=== PATIENT | female | born 1995 | race Caucasian/White ===

== ENCOUNTER → 2024-02-18 13:26 | Outpatient (CLI) | payer OTHER, MEDICAID, SELFPAY ==
[2024-02-19 11:20] LABS: Urine N gonorrhoeae NOT DETECTED
[2024-02-19 11:32] LABS: Urine Chlamydia NOT DETECTED
== END ==
PROVIDERS: Visit Provider Obstetrics & Gynecology
DX: Z34.01 Encounter for supervision of normal first pregnancy, first trimester (principal)
CPT/HCPCS: 87086; 87491; 87591

== ENCOUNTER → 2024-03-02 09:35 | Outpatient (CLI) | payer OTHER, MEDICAID, SELFPAY | PROVIDERS: Visit Provider Physician Assistant Medical | DX: Z34.83 Encounter for supervision of other normal pregnancy, third trimester (principal); Z3A.29 29 weeks gestation of pregnancy | CPT/HCPCS: 87086 ==

== ENCOUNTER → 2024-03-02 10:03 | Outpatient (CLI) | payer OTHER, MEDICAID, SELFPAY ==
[2024-03-02 11:27] LABS: Hemoglobin A1C% w Est Avg Glu 4.8 % (4.0-6.0)
[2024-03-03 08:36] LABS: Varicella IgG Antibody <135 index (Immune >165)
== END ==
PROVIDERS: Obstetrics & Gynecology; Referring Provider Physician Assistant Medical; Visit Provider Physician Assistant Medical
DX: Z34.83 Encounter for supervision of other normal pregnancy, third trimester (principal); Z3A.29 29 weeks gestation of pregnancy
CPT/HCPCS: 36415; 83036; 86787; 87086

== ENCOUNTER → 2024-03-25 12:13 | Outpatient (CLI) | payer OTHER, MEDICAID, SELFPAY ==
--- NOTE | 2024-03-25 12:14 | DI.US.S_ITS ---
PROCEDURE: US OB LIMITED INDICATIONS: EFW OUTSIDE/PRIOR DATING DATA: Last menstrual period (LMP): 08/17/2023. LMP-based estimated date of delivery (TANNER): 05/23/2024. First dating scan (date and location): Unknown. Estimated date of delivery (TANNER) from first dating scan: Unknown. The calculations are made using the clinical TANNER of 05/23/2024. TECHNIQUE: Real-time scanning was performed of the fetus, with image documentation and biometric measurements. COMPARISON: [facility], , OB >= 14 WEEKS FETUS, 02/18/2024, 13:45. FINDINGS: General: A single living intrauterine gestation is present. Presentation: Vertex. Placenta: Placental position is fundal , without previa. Amniotic fluid index: 7.6 cm, normal range is 5-24 cm. Single deepest vertical pocket is 4.4 cm. heart rate: 136 beats per minute. Maternal cervical canal: 5.3cm long. Normal lower limit is 2.5 cm. biometrics: Biparietal diameter: 8.1 cm 32 weeks 2 days Head circumference: 20.7 cm 31 weeks 4 days Abdominal circumference: 27.0 cm 31 weeks 1 day Femur length: 6.3 cm 32 weeks 3 days Clinically estimated gestational age: 31 weeks 4 days Composite gestational age from present scan: 31 weeks 6 days Estimated weight and percentile: 1811 g, 41st percentile Other: Not applicable. IMPRESSION: Single live intrauterine with gestational age today of 31 weeks 6 days. Appropriate interval growth. We strive to produce accurate, complete, and clear reports of imaging services. To assist us in improving patient care, this report was composed using standard report templates and voice recognition software. Therefore, it may contain abnormal punctuation, insertions and/or omissions. Occasional wrong-word or sound-alike substitutions may occur. Though we review the report and make efforts to correct it, we do recommend that the report be read carefully in proper context to recognize any text inaccuracies. Dictated by: Allegra Rome M.D. on 03/25/2024 at 23:41 Approved by: Allegra Rome M.D. on 03/25/2024 at 23:43
== END ==
PROVIDERS: Referring Provider Physician Assistant Medical; Visit Provider Physician Assistant Medical
DX: Z36.89 Encounter for other specified antenatal screening; Z3A.31 31 weeks gestation of pregnancy
CPT/HCPCS: 76815

== ENCOUNTER → 2024-03-31 09:13 | Outpatient (CLI) | payer OTHER, MEDICAID, SELFPAY ==
[2024-04-01 12:41] LABS: Candida species Negative (Negative); Gardnerella vaginalis Negative (Negative); Trichomoas vaginalis Negative (Negative)
== END ==
PROVIDERS: Visit Provider Obstetrics & Gynecology
DX: N89.8 Other specified noninflammatory disorders of vagina (principal)
CPT/HCPCS: 87480; 87510; 87660

== ENCOUNTER → 2024-04-21 08:35 | Outpatient (CLI) | payer OTHER, MEDICAID, SELFPAY ==
[2024-04-22 11:24] LABS: Strep Grp B PCR NEG for Grp B Strep
== END ==
PROVIDERS: Referring Provider Obstetrics & Gynecology; Visit Provider Obstetrics & Gynecology
DX: Z3A.36 36 weeks gestation of pregnancy (principal); Z34.83 Encounter for supervision of other normal pregnancy, third trimester
CPT/HCPCS: 87653

== ENCOUNTER 2024-05-05 10:27 | Outpatient (CLI) | payer OTHER, MEDICAID, SELFPAY ==
--- NOTE | 2024-05-05 10:33 | DI.US.S_ITS ---
PROCEDURE: US OB BIOPHYSICAL PROFILE INDICATIONS: decreased movement OUTSIDE/PRIOR DATING DATA: Last menstrual period (LMP): 08/17/2023. LMP-based estimated date of delivery (TANNER): 05/23/2024. The calculations are made using the clinical TANNER of 05/23/2024. TECHNIQUE: Real-time scanning was performed of the fetus for biophysical profile, with image documentation. Endovaginal scanning: Not performed COMPARISON: None. FINDINGS: General: A single living intrauterine gestation is present. Presentation: Vertex. Placenta: Placental position is left fundal , without previa. Amniotic fluid index: 9.7 cm, normal range is 5-24 cm. Single deepest vertical pocket is 6.5 cm. heart rate: 136 beats per minute. Maternal cervical canal: 4.8 cm long. Normal lower limit is 2.5 cm. Clinically estimated gestational age: 37 weeks 3 days Biophysical profile: Tone: 2 points. Movement: 2 points. Respiration: 2 points. Largest pocket of fluid: 2 points. Umbilical artery Doppler: Not requested IMPRESSION: Single living intrauterine at 37 weeks 3 days, TANNER of 05/23/2024. BPP 8 of 8. We strive to produce accurate, complete, and clear reports of imaging services. To assist us in improving patient care, this report was composed using standard report templates and voice recognition software. Therefore, it may contain abnormal punctuation, insertions and/or omissions. Occasional wrong-word or sound-alike substitutions may occur. Though we review the report and make efforts to correct it, we do recommend that the report be read carefully in proper context to recognize any text inaccuracies. Dictated by: Ronnie Thomas M.D. on 05/05/2024 at 13:06 Approved by: Ronnie Thomas M.D. on 05/05/2024 at 13:08
== END 2024-05-05 11:27 | disposition home or self-care (01) ==
LOC: LABOR 10:34 → OB 05-11 06:34
PROVIDERS: PCP Family Medicine; Referring Provider Obstetrics & Gynecology; Visit Provider Obstetrics & Gynecology
DX: O36.8130 Decreased fetal movements, third trimester, not applicable or unspecified (principal); Z3A.38 38 weeks gestation of pregnancy
CPT/HCPCS: 59025; 76819; G0378; G0379

== ENCOUNTER 2024-05-12 15:35 | Outpatient (CLI) | payer OTHER, MEDICAID, SELFPAY | END 2024-05-12 16:30 | disposition home or self-care (01) | LOC: OB 05-15 15:34 | PROVIDERS: PCP Family Medicine; Referring Provider Obstetrics & Gynecology; Visit Provider Obstetrics & Gynecology | DX: O36.8130 Decreased fetal movements, third trimester, not applicable or unspecified (principal); Z3A.39 39 weeks gestation of pregnancy | CPT/HCPCS: 59025; 76815; G0378; G0379 ==

== ENCOUNTER 2024-05-18 09:44 | Observation (INO) | payer OTHER, MEDICAID, SELFPAY | END 2024-05-18 10:37 | disposition home or self-care (01) | LOC: LABOR 09:46 | PROVIDERS: Admitting Provider Student in an Organized Health Care Education/Training Program; PCP Family Medicine; Referring Provider Student in an Organized Health Care Education/Training Program; Visit Provider Student in an Organized Health Care Education/Training Program | DX: O48.0 Post-term pregnancy (principal); Z3A.40 40 weeks gestation of pregnancy | CPT/HCPCS: 59025; G0378; G0379 ==

== ENCOUNTER 2024-05-26 07:29 | Inpatient (IN) | payer OTHER, MEDICAID, SELFPAY ==
[2024-05-26 08:11] VITALS: BP 119/59
[2024-05-26 08:33] LABS: Add Manual Diff / Slide Review NO; Basophils Absolute Auto 0 /uL (0-100); Basophils Percent Auto 0.3 % (0-2); Eosinophils Absolute Auto 100 /uL (0-450); Eosinophils Percent Auto 0.8 % (2-4); Hematocrit 34.2 % (36-46); Hemoglobin 11.7 g/dL (12.0-16.0); Lymphocytes Absolute Auto 2100 /uL (1100-4500); Lymphocytes Percent Auto 21.5 % (25-40); Mean Corpuscular HGB Conc 34.1 % (30-36); Mean Corpuscular Hemoglobin 31.8 PG (26-34); Mean Corpuscular Volume 93.4 fL (80-100); Monocytes Absolute Auto 500 /uL (0-900); Monocytes Percent Auto 4.9 % (3-14); Neutrophils Absolute Auto 7200 /uL (1500-7000); Neutrophils Percent Auto 72.5 % (50-75); Platelet Count 200 X10^3/uL (150-400); Red Blood Cell Count 3.66 X10^6/uL (4.0-5.2); Red Cell Distribution Width 14.5 % (11.6-14.8); White Blood Cell Count 9.9 X10^3/uL (4.5-11.0)
[2024-05-26] MEDS: LACTATED RINGERS 1,000 ML 100 ML IV (08:54)
[2024-05-26] MEDS: OXYTOCIN PREMIX 30 UNIT/500 ML PLAST..BAG IV (08:54)
--- NOTE | 2024-05-26 09:22 | P.HPOB_ITS ---
OB HPI Date/Time Date of admission: 05/26/24 Date Patient Seen: 05/26/24 Time Patient Seen: 08:30 History of Present Condition Chief complaint: INDUCTION : 4 Para: 3 Estimated Date of Delivery: 05/17/24 Estimated Gestational Age (weeks): 41w2d Narrative: Lucrecia Rogel is a 28 year old female at 41w2d by early OSH first trimester US presents for scheduled IOL secondary to late term . Pt has had regular PNC through without complication, prior LGA in G3 (9#7oz) without personal h/o GDM. growth scan of current fetus at 32wga 41st% and 1h OGTT again wnl. GBS negative. Pt states mild contractions following membrane sweep per Dr. Candelario at time of last PNC appointment, no true s/sx of labor. Indications Indication for induction OB: post dates History of Present care: good care Dating criteria: LMP confirmed by 1st trimester US Ultrasounds: normal mid trimester US Obstetrical complications: none Medical complications: none Preadmission Labs Blood type: A (+) positive -: Antibody screen: negative, Cystic fibrosis screen: unknown, GBS status: negative, HBsAG: negative, HIV: negative, HSV 1: unknown, HSV 2: unknown and RPR/VDLR: negative -: Chlamydia screen: not detected and Gonorrhea screen: not detected -: Rubella: not immune and Varicella: not immune HCT: 34.2 HCAB: negative Quad screen: Normal 1 hr GTT: 110 Prior (ies) History: x3, tested to 9#7 Evaluation Evaluation Baseline heart rate: 140 Variability: Moderate (11-25) monitor accelerations: Present Monitor Decelerations: Absent Category of Tracing: Reactive Status: Category l Dilation (cm): 4 Effacement (%): 70 Dilation: 3-4 cm Effacement: 60-70% station: -1 Position of cervix: posterior Consistency: soft Ellison score: 8 PFSH Medical History Ovarian cyst rupture Elbow fracture Surgical History History of orthopedic surgery Family History Father Hypertension Mother Family estrangement Social History marital status: number of children: 3 household members: spouse and children lives independently: Yes caregiver/support person: Yes housing: house pets and animals: Yes (dogs and cats, managing litter box) education level: high school occupational status: unemployed current occupational exposures/hazards: No special herber needs: No travel history: recent ([place]) seatbelt use: always water heater temp set < 120 deg: Yes working smoke detector in home: Yes fire extinguisher in home: Yes carbon monox detector in home: Yes firearms in home: Yes firearms unloaded and locked: Yes do you feel safe at home: Yes Smoking Status: Never smoker second hand exposure: Yes ( vapes, but pt isn't around him when he does) alcohol intake: former (very occasionally when not ) substance use type: does not use during the past year weight has: decreased > 10 lbs well-balanced diet: about half the time daily servings fruits/ve-4 (mostly fruit) caffeine: Yes (occasional AM cup coffee) Type(s) of exercise: walking frequency: 3-4 times per week Meds Home Medications and Allergies Home Medications Medication Instructions Recorded Confirmed Type vitamin-ferrous sulfate tab PO 02/12/24 05/18/24 History 27 mg iron-folic acid 0.8 mg tablet Allergies Allergy/AdvReac Type Severity Reaction Status Date / Time No Known Drug Allergies Allergy Unverified 05/18/24 09:12 Review of Systems Review of Systems ROS: Yes All systems reviewed with the patient and are negative except as otherwise documented OB Exam Vital signs Blood Pressure: 119/59 Pulse Rate: 86 Respiratory Rate: 16 Temperature: 98.4 F HENMT Head: normal to inspection Eyes General: appearance normal, both eyes and all related structures Resp Effort & Inspection: normal respiratory effort Cardio Rate: regular rate Extremities Lower extremity: Yes normal to inspection GI Inspection: normal to inspection and obesity Other: gravid, radha cephalic 8# Objective Labs 05/26/24 08:06 Labs: Laboratory Results - last 24 hr 05/26/24 08:06 WBC 9.9 RBC 3.66 L Hgb 11.7 L Hct 34.2 L MCV 93.4 MCH 31.8 MCHC 34.1 RDW 14.5 Plt Count 200 Neut % (Auto) 72.5 Lymph % (Auto) 21.5 L Cooper % (Auto) 4.9 Eos % (Auto) 0.8 L Baso % (Auto) 0.3 Neut # (Auto) 7200 H Lymph # (Auto) 2100 Cooper # (Auto) 500 Eos # (Auto) 100 Baso # (Auto) 0 Blood Type A Positive Antibody Screen Negative Assessment and Plan Assessment and Plan Assessment and Plan narrative: 28yo at 41w2d by early OSH first trimester dating presents for scheduled IOL secondary to late-term gestation IOL favorable cervix (/soft) start pitocin augmentation, anticipate AROM pending established pattern CBC, T&S on admission GBS neg, remainder PNL as above --> will need MMR high risk PPD secondary to multiparity, h/o prior LGA --> uterotonics in room at time of delivery Patient is consented for vaginal, vaginal operative and section. She additionally consents to transfusion of blood products as medically indicated. Dispo: admit, anticipate vaginal delivery Time-Based Coding :: [TOTAL MINUTES] spent with patient and on the chart (including review of chart, obtaining history, exam, reviewing outside data, placing orders, documenting exam and treatment plan, and counseling patient) on [DATE].
[2024-05-26 10:04] VITALS: BP 119/59; PULSE 86; RESP 16; TEMP 36.9
--- NOTE | 2024-05-26 14:15 | PM.AN.REGBLK ---
Regional Block Pre-procedure Procedure: Continuous Lumbar Epidural for L&D Attending OB provider: Faiza Domínguez PMH/ROS narrative: , 40 3/7, 4cm, unruptured. Spontaneous labor desires labor epidural. Had epidurals with previous deliveries, no issues. PMH/ROS unremarkable. PSH/Anesthesia history narrative: Previous epidurals, no issues Exam narrative: Mall 2, dentition intact, good neck ROM. ASA Class: II Labs: Hct 34.2 % (36-46) L 05/26/24 08:06 Plt Count 200 X10^3/uL (150-400) 05/26/24 08:06 Medications: Current Medications Generic Name Dose Route Start Last Admin Trade Name Freq PRN Reason Stop Dose Admin Carboprost Tromethamine 250 mcg 05/26/24 08:18 Carboprost 250 Mcg/Ml Ampul IM Q90M PRN Bleeding Oxytocin/Lactated Ringer's 30 unit in 500 mls @ 200 mls/hr 05/26/24 08:18 05/26/24 08:54 Oxytocin Premix IV 2 mls/hr CONT PRN Administration Bleeding Protocol Tranexamic Acid 1,000 mg/ 100 mls @ 600 mls/hr 05/26/24 08:18 Sodium Chloride IV NOW PRN Bleeding Lactated Ringer's 1,000 mls @ 100 mls/hr 05/26/24 08:30 05/26/24 08:54 Lactated Ringers IV 05/26/24 18:29 100 mls/hr CONT ELIANA Administration Oxytocin/Lactated Ringer's 30 unit in 500 mls @ 2 mls/hr 05/26/24 09:05 Oxytocin Premix IV TITRATE ELIANA Protocol 2 MILLIUNIT/MIN Lidocaine HCl 20 ml 05/26/24 08:18 Lidocaine 1% 20 Ml INJ INTRA-OP PRN Post Delivery Methylergonovine Maleate 0.2 mg 05/26/24 08:18 Methylergonovine 0.2 Mg Tablet PO Q6HR PRN Heavy Bleeding Methylergonovine Maleate 0.2 mg 05/26/24 08:18 Methylergonovine 0.2 Mg/Ml Vial IM NOW PRN Bleeding Mineral Oil 30 ml 05/26/24 08:18 Mineral Oil 30 Ml Udc TOP PRN PRN Version Misoprostol 800 mcg 05/26/24 08:18 Misoprostol 200 Mcg Tablet FL NOW PRN Bleeding Misoprostol 400 mcg 05/26/24 08:18 Misoprostol 200 Mcg Tablet SL NOW PRN Bleeding Naloxone HCl 0.2 mg 05/26/24 08:18 Naloxone 0.4 Mg/Ml Vial IV Q2MIN PRN Opiate Reversal Ondansetron HCl 4 mg 05/26/24 08:18 Ondansetron 4 Mg/2 Ml Inj IV Q4HR PRN Nausea And Vomiting Oxytocin 10 unit 05/26/24 08:18 Oxytocin 10 Unit/Ml Vial IM NOW PRN Bleeding Allergies: Allergies Allergy/AdvReac Type Severity Reaction Status Date / Time No Known Drug Allergies Allergy Unverified 05/18/24 09:12 Procedure Insertion date: 05/26/24 Insertion time: 13:13 Prep/Local: 1% lidocaine (chlorhexidine skin prep, sterile drape) Interspace: L4-5 Patient position: sitting Needle: 18 gauge Hustead Loss of resistance with: saline NILES at (cm): 7 Catheter placed at SKIN (cm): 14 Catheter in SPACE (cm): 7 Sensory level: T10 Insertion: Yes Paresthesia with insertion Initial Medications TEST DOSE time: 13:28 BOLUS DOSE time: 13:38 BOLUS DOSE (mL): 5 BOLUS DOSE med: other (Pump solution) Infusion Initial rate (mL/hr): 10 Post-procedure Anesthesia date START: 05/26/24 Anesthesia time START: 13:13 Anesthesia date END: 05/26/24 Anesthesia time END: 17:51 Post-procedure Anesthesia Assessment: Yes CV function: HR/BP stable, Yes Resp function: RR/sat/airway adequate, Yes Post-op hydration adequate, Yes Pain control adequate, Yes Nausea & vomiting absent, Yes Temperature > 36 C, Yes Mental status appropriate and Yes Anesthesia complications
[2024-05-26] MEDS: ONDANSETRON 4 MG/2 ML INJ IV (15:14)
--- NOTE | 2024-05-26 18:10 | PM.OBPRVD ---
Labor & Delivery Delivery date: 05/26/24 Induction method: per pitocin protocol Delivery augmentation: rupture of membranes Delivery monitor: external FHT and external uterine Route of delivery: L&D Laceration Description: Perineal - 1st Degree Delivery repair: vicryl Estimated blood loss (mL): 200 Anesthesia Type: Epidural Complications: none Narrative: The patient progressed to C/C/+1 with pitocin augmentation and epidural anesthesia. After approximately 20min of maternal pushing efforts, the delivered in OA position and restituted ROT. The anterior shoulder delivered with gentle downward pressure. The posterior shoulder and rest of body delivered with ease. The cord was doubly clamped and cut after a 60sec delay with the placed on maternal abdomen. The placenta delivered spontaneously and was intact with a 3-vessel cord. The fundus was noted to be firm with bimanual massage and pitocin. Inspection of the cervix, vagina, and perineum was notable for a 1st degree perineal laceration. Repair was performed using 3-0 Vicryl in [id number] sutures. At the end of the repair, all tissues noted to be hemostatic. All sponges were removed from the vagina. The patient tolerated delivery well and remained in the labor room with the at the bedside. Baby 1: Infant gender: Male Presentation: vertex Placenta delivery description: Spontaneous Cord Vessel Description: 3 Vessels score (1 min): 7 score (5 min): 9 weight: 8 lb 14.33 oz Plan for aftercare: Routine care
[2024-05-26] MEDS: IBUPROFEN 600 MG TABLET PO (20:58)
[2024-05-26] MEDS: WITCH HAZEL/GLYCERIN PADS 1 EACH TOP (20:58)
[2024-05-26] MEDS: LANOLIN OINT 7 GM 1 APPLIC TOP (20:58)
[2024-05-27] MEDS: IBUPROFEN 600 MG TABLET PO ×2 (03:46→09:02)
[2024-05-27] MEDS: ACETAMINOPHEN 325 MG TABLET 650 MG PO (09:02)
--- NOTE | 2024-05-27 13:59 | PM.OBDS.1 ---
Discharge Providers Provider Date of admission: 05/26/24 07:29 Discharge Date: 05/27/24 Primary care physician: Dilip Bellamy MD Consults: 05/26/24 08:19 Consult to Anesthesiology Urgent Comment: Consulting Provider: Anesthesiologist Reason for consultation: Epidural 05/27/24 18:09 Consult to Laundry Equipment Operator Routine Comment: Discharge provider: Faiza Domínguez MD Summary Hospital Course Date Patient Seen: 05/27/24 Time Patient Seen: 08:00 Diagnoses: late term Hospital Course: 28yo at 41w2d by early first trimester dating presented to facility for scheduled admission secondary to late gestation . Patient had regular care throughout without significant complication. history significant for history of prior macroscomic without personal h/o GDM. Patient had normal 1h OGTT this as well as normal growth scan at 32wga (41st%); noted maternal low-immunity (rubella) with recommendation for MMR. Patient was 4cm dilated on admission, progressed to 6cm with pitocin augmentation. Patient received epidural analgesia after which AROM was performed and pt subsequently progressed to full dilation. Uncomplicated second stage, uncomplicated course and pt requested discharge to home on PPD1 meeting all discharge milestones. , planning on partner vasectomy. Peripartum Data Infant Delivery Method: Natural Vaginal complications: none 1: Gender: Male Disposition of : home Status at Discharge Cognitive/behavioral status at discharge: oriented Functional status at discharge: independent ambulation Overall status at discharge: patient is back to baseline Time Spent with Patient Time attestation: Total time spent providing and/or coordinating discharge services: Objective Labs 05/26/24 08:06 Exam Vital Signs (past 8 hours): maternal VSS per review of OBIX, afebrile Const General: cooperative and healthy appearing Nutritional Appearance: obese Orientation: alert, awake and oriented x3 Limitations: mental status not altered HENMT Head: normal to inspection Mouth: moist mucous membranes Resp Effort & Inspection: normal respiratory effort Cardio Pulses: normal peripheral pulses GI Palpation: soft Other: fundus firm << umb Other: deferred Back/Spine/Pelvis Back: normal to inspection Skin General: no rashes or lesions noted Neuro General: patient alert, patient awake and patient oriented x3 Extrem General: normal to inspection Psych Mental Status: mental status grossly normal Judgment: judgment good Discharge Plan Discharge Plan Patient Disposition: Home Provider Discharge Comment: Nothing in the vagina for 4 weeks. No tampons, intercourse, swimming in fresh water/pools/hot tubs. Discharge orders & Medications Prescriptions: New acetaminophen 325 mg Tablet 650 mg PO Q6HR PRN (Reason: Pain, Mild (1-3)) Qty: 30 0RF ibuprofen 600 mg Tablet 600 mg PO Q6HR PRN (Reason: Pain, Mild (1-3)) Qty: 30 0RF No Action No Known Home Medications Follow up/Referrals: Dilip Bellamy MD [Primary Care Provider] - Faiza Domínguez MD [Physician] - 07/07/26 11:30 am Diet/Activity/Treatments Diet: Regular Skin/Wound/Dressing Care Report to your healthcare provider any signs of infection, such as:: chills, fever, increased pain and unusual drainage Visit Report/Discharge Packet Instructions: DI for Hemorrhage Stand Alone Forms: Discharge: Care, Patient Portal/API, Stroke Signs & Symptoms Discharge Data Primary Care Provider: Dilip Bellamy
== END 2024-05-27 14:31 | disposition home or self-care (01) | DRG 560 ==
PROVIDERS: Admitting Provider Obstetrics & Gynecology; PCP Family Medicine; Referring Provider Obstetrics & Gynecology; Visit Provider Obstetrics & Gynecology
DX: O48.0 Post-term pregnancy (principal); Z3A.41 41 weeks gestation of pregnancy; Z37.0 Single live birth; O70.0 First degree perineal laceration during delivery
CPT/HCPCS: 36415; 59050; 59409; 85025; 86850; 86900; 86901; G0379; J2405; J2590